=== PATIENT | male | born 1990 | race Caucasian/White ===

== ENCOUNTER 2016-11-23 16:30 | Emergency (ER) | payer OTHER ==
[~2016-11-23] VITALS: Wt 86.2 kg
[~2016-11-23 16:30] MED LIST: AMOXICILLIN500 MG PO; AMOXIL500 MG PO; ANAPROX DS550 MG PO; AUGMENTIN 875875 MG PO; BACTRIM DS 8001 TA1 PO; BENADRYL ALLERG25 M5 PO; CATAFLAM50 MG PO; CEPHALEXIN500 M1 PO; CLARITIN10 MG PO; DAYPRO600 M1 PO; HYDROCODONE BIT1 T11 PO; KEFLEX500 M1 PO; KEFLEX500 MG PO; LIDEX 0.05% CRE15 GM T; MOTRIN 800 MG E4 TAB PO; MOTRIN800 MG PO; Motrin,Rufen800 MG PO; NAPROSYN500 MG PO; PEN-VK500 MG PO; PREDNICOT20 MG PO; PREDNISONE10 MG PO; PROVENTIL0.09 MG/AC IH; ROBITUSSIN AC 110 ML PO; ROBITUSSIN DM 105 ML PO; TESSALON PERLE100 M1 PO; VIBRAMYCIN100 MG PO; ZITHROMAX Z PA250 MG PO; ZITHROMAX250 MG PO; ZOFRAN ODT4 MG SL; ZOVIRAX400 MG PO
[2016-11-23] MEDS ORDERED: PERCOCET 325 MG1 TA7 PO (18:28)
[2016-11-23] MEDS ORDERED: AMOXICILLIN500 M2 PO (18:28)
== END 2016-11-23 18:36 | disposition home or self-care (01) ==
LOC: ED 16:30
DX: S42.254A Nondisplaced fracture of greater tuberosity of right humerus, initial encounter for closed fracture (principal); J32.9 Chronic sinusitis, unspecified; F17.200 Nicotine dependence, unspecified, uncomplicated; W11.XXXA Fall on and from ladder, initial encounter; Y93.89 Activity, other specified; Y92.89 Other specified places as the place of occurrence of the external cause; Y99.9 Unspecified external cause status

== ENCOUNTER 2017-02-23 17:57 | Emergency (ER) | payer OTHER ==
[~2017-02-23] VITALS: Ht 182.8 cm; Wt 88.5 kg
[~2017-02-23 17:57] MED LIST changes: +AMOXICILLIN500 M2 PO; +PERCOCET 325 MG1 TA7 PO
[2017-02-23 18:46] LABS: BASO % 0.6 % (0.0-1.0); EOS # 0.2 10*3/uL (0.0-0.4); EOS % 2.2 % (1.0-4.0); HEMATOCRIT 38.2 % (42.0-52.0); HEMOGLOBIN 13.1 g/dl (14.0-18.0); LYMPH # 2.5 10*3/uL (1.3-4.4); LYMPH % 35.8 % (27.0-41.0); MEAN CELL VOLUME 90.1 fl (80.0-94.0); MEAN CORPUSCULAR HGB 30.9 pg (27.0-31.0); MEAN CORPUSCULAR HGB CONC 34.3 g/dl (33.0-37.0); MEAN PLATELET VOLUME 10.1 fl (9.6-12.3); MONO # 0.6 10*3/uL (0.1-1.0); MONO % 8.6 % (3.0-9.0); NEUT # 3.7 10*3/uL (2.3-7.9); NEUT % 52.7 % (47.0-73.0); PLATELET COUNT AUTOMATED 184 10*3/uL (130-400); RED BLOOD COUNT 4.24 10*6/uL (4.50-5.90); RED CELL DISTRI WIDTH 12.5 % (0-14.5)
[2017-02-23] MEDS ORDERED: CLINDAMYCIN HC300 MG PO (19:55)
== END 2017-02-23 19:58 | disposition home or self-care (01) ==
LOC: ED 17:57
PROVIDERS: Physician Assistant
DX: L08.9 Local infection of the skin and subcutaneous tissue, unspecified (principal); F17.200 Nicotine dependence, unspecified, uncomplicated

== ENCOUNTER 2017-03-07 15:50 | Emergency (ER) | payer OTHER ==
[~2017-03-07] VITALS: Wt 88.5 kg
[~2017-03-07 15:50] MED LIST changes: +CLINDAMYCIN HC300 MG PO
[2017-03-07] MEDS ORDERED: DAILY VALUE1 EACH PO (16:03)
[2017-03-07 16:26] LABS: BASO % 0.5 % (0.0-1.0); EOS # 0.2 10*3/uL (0.0-0.4); EOS % 2.6 % (1.0-4.0); HEMATOCRIT 37.5 % (42.0-52.0); LYMPH # 2.4 10*3/uL (1.3-4.4); MEAN CELL VOLUME 91.2 fl (80.0-94.0); MEAN CORPUSCULAR HGB 31.6 pg (27.0-31.0); MEAN CORPUSCULAR HGB CONC 34.7 g/dl (33.0-37.0); MEAN PLATELET VOLUME 10.3 fl (9.6-12.3); MONO # 0.5 10*3/uL (0.1-1.0); MONO % 7.2 % (3.0-9.0); NEUT # 3.4 10*3/uL (2.3-7.9); NEUT % 52.4 % (47.0-73.0); PLATELET COUNT AUTOMATED 185 10*3/uL (130-400); RED BLOOD COUNT 4.11 10*6/uL (4.50-5.90); RED CELL DISTRI WIDTH 12.4 % (0-14.5); WHITE BLOOD COUNT 6.5 10*3/uL (4.8-10.8)
[2017-03-07 16:41] LABS: ALBUMIN 4.1 gm/dl (3.1-4.5); ALKALINE PHOSPHATASE 69 U/L (45-117); BILIRUBIN, TOTAL 0.2 mg/dl (0.2-1.0); BUN 14 mg/dl (7-24); CARBON DIOXIDE 26 mmol/L (21-32); CHLORIDE 107 mmol/L (98-107); EST GLOM FILT AFRICAN AMERICAN > 60 ml/min; GLUCOSE 76 mg/dL (65-99); POTASSIUM 3.9 mmol/L (3.5-5.1); SGOT/AST 15 IU/L (3-35); SGPT/ALT 18 U/L (12-78); SODIUM 144 mmol/L (136-145)
[2017-03-07] MEDS ORDERED: AMOXICILLIN500 M2 PO (17:09)
== END 2017-03-07 17:42 | disposition home or self-care (01) ==
LOC: ED 15:50
PROVIDERS: Registered Nurse
DX: J06.9 Acute upper respiratory infection, unspecified (principal); F17.210 Nicotine dependence, cigarettes, uncomplicated; Z79.899 Other long term (current) drug therapy

== ENCOUNTER 2017-05-01 17:08 | Emergency (ER) | payer OTHER ==
[~2017-05-01] VITALS: Wt 81.6 kg
[~2017-05-01 17:08] MED LIST changes: +DAILY VALUE1 EACH PO
[2017-05-01] MEDS ORDERED: CEPHALEXIN500 M1 PO (18:09)
== END 2017-05-01 18:07 | disposition home or self-care (01) ==
LOC: ED 17:08
DX: S90.31XA Contusion of right foot, initial encounter (principal); L03.011 Cellulitis of right finger; F17.200 Nicotine dependence, unspecified, uncomplicated; Z79.899 Other long term (current) drug therapy; W55.12XA Struck by horse, initial encounter; Y93.9 Activity, unspecified; Y92.9 Unspecified place or not applicable; Y99.9 Unspecified external cause status

== ENCOUNTER 2017-07-01 12:36 | Emergency (ER) | payer OTHER ==
[~2017-07-01] VITALS: Ht 187.9 cm; Wt 88.5 kg
[2017-07-01] MEDS ORDERED: BACTRIM DS 8001 TA1 PO (13:49)
== END 2017-07-01 14:25 | disposition home or self-care (01) ==
LOC: ED 12:36
DX: L02.411 Cutaneous abscess of right axilla (principal); F17.200 Nicotine dependence, unspecified, uncomplicated

== ENCOUNTER 2017-08-05 16:54 | Emergency (ER) | payer OTHER ==
[~2017-08-05] VITALS: Ht 187.9 cm; Wt 88.5 kg
[2017-08-05 17:31] LABS: BILIRUBIN NEGATIVE (NEGATIVE); BLOOD NEGATIVE (NEGATIVE); CLARITY SL CLOUDY (CLEAR); COLOR YELLOW (YELLOW); GLUCOSE NEGATIVE (NEGATIVE); KETONE NEGATIVE (NEGATIVE); LEUKO ESTERASE NEGATIVE (NEGATIVE); NITRITE NEGATIVE (NEGATIVE)
[2017-08-05] MEDS ORDERED: MEDROL DOSEPAK4 MG PO (17:55)
[2017-08-05] MEDS ORDERED: CYCLOBENZAPRINE10 MG PO (17:55)
[2017-08-05] MEDS ORDERED: NAPROSYN500 MG PO (17:55)
[2017-08-05 17:59] LABS: BACTERIA TRACE; WBC 0-2 wbc/hpf (0-5)
== END 2017-08-05 18:05 | disposition home or self-care (01) ==
LOC: ED 16:54
PROVIDERS: Nurse Practitioner Family
DX: S39.011A Strain of muscle, fascia and tendon of abdomen, initial encounter (principal); F17.200 Nicotine dependence, unspecified, uncomplicated; Z79.899 Other long term (current) drug therapy; X58.XXXA Exposure to other specified factors, initial encounter; Y93.89 Activity, other specified; Y92.89 Other specified places as the place of occurrence of the external cause; Y99.9 Unspecified external cause status

== ENCOUNTER 2018-04-30 16:36 | Emergency (ER) | payer OTHER ==
[~2018-04-30] VITALS: Wt 88.5 kg
[~2018-04-30 16:36] MED LIST changes: +CYCLOBENZAPRINE10 MG PO; +MEDROL DOSEPAK4 MG PO
[2018-04-30] MEDS ORDERED: SEPTDS PO (16:47)
[2018-04-30] MEDS ORDERED: CEPHALEXIN500 M1 PO (16:47)
== END 2018-04-30 16:58 | disposition home or self-care (01) ==
LOC: ED 16:36
DX: L02.01 Cutaneous abscess of face (principal); F17.200 Nicotine dependence, unspecified, uncomplicated; Z79.899 Other long term (current) drug therapy; Z88.4 Allergy status to anesthetic agent; Z86.14 Personal history of Methicillin resistant Staphylococcus aureus infection

== ENCOUNTER 2018-05-05 19:33 | Emergency (ER) | payer OTHER ==
[~2018-05-05] VITALS: Ht 187.9 cm; Wt 88.5 kg
[~2018-05-05 19:33] MED LIST changes: +SEPTDS PO
[2018-05-05] MEDS ORDERED: CEPHALEXIN500 M1 PO (19:50)
[2018-05-05] MEDS ORDERED: SEPTDS PO (19:50)
== END 2018-05-05 19:56 | disposition home or self-care (01) ==
LOC: ED 19:33
DX: L02.01 Cutaneous abscess of face (principal); Z79.899 Other long term (current) drug therapy

== ENCOUNTER 2018-08-27 17:22 | Emergency (ER) | payer OTHER ==
[~2018-08-27] VITALS: Ht 187.9 cm; Wt 88.5 kg
== END 2018-08-27 19:24 | disposition home or self-care (01) ==
LOC: ED 17:22
DX: S86.912A Strain of unspecified muscle(s) and tendon(s) at lower leg level, left leg, initial encounter (principal); Z91.041 Radiographic dye allergy status; Z79.2 Long term (current) use of antibiotics; Z79.899 Other long term (current) drug therapy; X50.1XXA Overexertion from prolonged static or awkward postures, initial encounter; Y93.89 Activity, other specified; Y92.89 Other specified places as the place of occurrence of the external cause; Y99.8 Other external cause status

== ENCOUNTER 2018-10-08 19:37 | Emergency (ER) | payer OTHER ==
[~2018-10-08] VITALS: Wt 86.2 kg
[2018-10-08] MEDS ORDERED: ZOFRAN4 MG PO (19:45)
[2018-10-08] MEDS ORDERED: SEPTDS PO (19:45)
[2018-10-08] MEDS ORDERED: KEFLEX500 M1 PO (19:45)
[2018-10-08] MEDS ORDERED: NAPROSYN500 MG PO (20:05)
== END 2018-10-08 20:10 | disposition home or self-care (01) ==
LOC: ED 19:37
DX: L02.411 Cutaneous abscess of right axilla (principal); R03.0 Elevated blood-pressure reading, without diagnosis of hypertension; Z91.041 Radiographic dye allergy status

== ENCOUNTER 2018-10-13 20:05 | Emergency (ER) | payer OTHER ==
[~2018-10-13] VITALS: Ht 187.9 cm; Wt 88.5 kg
[~2018-10-13 20:05] MED LIST changes: +ZOFRAN4 MG PO
[2018-10-13] MEDS ORDERED: CEPHALEXIN500 M1 PO (20:27)
== END 2018-10-13 20:30 | disposition home or self-care (01) ==
LOC: ED 20:05
DX: T26.02XA Burn of left eyelid and periocular area, initial encounter (principal); X08.8XXA Exposure to other specified smoke, fire and flames, initial encounter; Y93.89 Activity, other specified; Y92.89 Other specified places as the place of occurrence of the external cause; Y99.8 Other external cause status

== ENCOUNTER 2018-12-09 23:58 | Emergency (ER) | payer SELFPAY ==
[~2018-12-09] VITALS: Ht 187.9 cm; Wt 88.5 kg
[2019-02-05] MEDS ORDERED: PREDNISONE10 MG PO (10:02)
[2019-02-05] MEDS ORDERED: CLARITIN10 MG PO (10:02)
[2019-02-05] MEDS ORDERED: MUCINEX DM ER1 EACH PO (10:02)
[2019-02-05] MEDS ORDERED: FLONASE ALLERG9.9 ML NAS (10:02)
== END 2018-12-10 01:24 | disposition home or self-care (01) ==
LOC: ED 23:58
DX: T15.01XA Foreign body in cornea, right eye, initial encounter (principal); Z91.041 Radiographic dye allergy status; X58.XXXA Exposure to other specified factors, initial encounter; Y93.89 Activity, other specified; Y92.89 Other specified places as the place of occurrence of the external cause; Y99.8 Other external cause status

== ENCOUNTER 2018-12-29 22:25 | Emergency (ER) | payer SELFPAY ==
[2019-02-05] MEDS ORDERED: MUCINEX DM ER1 EACH PO (10:02)
[2019-02-05] MEDS ORDERED: PREDNISONE10 MG PO (10:02)
[2019-02-05] MEDS ORDERED: CLARITIN10 MG PO (10:02)
[2019-02-05] MEDS ORDERED: FLONASE ALLERG9.9 ML NAS (10:02)
== END 2018-12-30 00:31 | disposition home or self-care (01) ==
LOC: ED 22:25
DX: T15.91XA Foreign body on external eye, part unspecified, right eye, initial encounter (principal); Z91.041 Radiographic dye allergy status; X58.XXXA Exposure to other specified factors, initial encounter; Y93.89 Activity, other specified; Y92.89 Other specified places as the place of occurrence of the external cause; Y99.8 Other external cause status

== ENCOUNTER 2018-12-30 15:25 | Emergency (ER) | payer SELFPAY ==
[~2018-12-30] VITALS: Ht 182.8 cm; Wt 88.5 kg
[2019-02-05] MEDS ORDERED: FLONASE ALLERG9.9 ML NAS (10:02)
[2019-02-05] MEDS ORDERED: PREDNISONE10 MG PO (10:02)
[2019-02-05] MEDS ORDERED: CLARITIN10 MG PO (10:02)
[2019-02-05] MEDS ORDERED: MUCINEX DM ER1 EACH PO (10:02)
== END 2018-12-30 16:02 | disposition home or self-care (01) ==
LOC: ED 15:25
DX: S05.01XA Injury of conjunctiva and corneal abrasion without foreign body, right eye, initial encounter (principal); F17.200 Nicotine dependence, unspecified, uncomplicated; Z91.041 Radiographic dye allergy status; X58.XXXA Exposure to other specified factors, initial encounter; Y93.89 Activity, other specified; Y92.098 Other place in other non-institutional residence as the place of occurrence of the external cause; Y99.8 Other external cause status

== ENCOUNTER 2019-02-21 19:16 | Emergency (ER) | payer SELFPAY ==
[~2019-02-21] VITALS: Ht 187.9 cm; Wt 93.0 kg
[~2019-02-21 19:16] MED LIST changes: +FLONASE ALLERG9.9 ML NAS; +MUCINEX DM ER1 EACH PO
[2019-02-21] MEDS ORDERED: IBUPROFEN600 MG PO (20:18)
[2019-02-21] MEDS ORDERED: AUGMENTIN 875875 MG PO (20:18)
== END 2019-02-21 20:28 | disposition home or self-care (01) ==
LOC: ED 19:16
DX: J02.9 Acute pharyngitis, unspecified (principal); H66.91 Otitis media, unspecified, right ear; Z91.041 Radiographic dye allergy status; Z79.899 Other long term (current) drug therapy

== ENCOUNTER 2019-07-31 08:30 | Emergency (ER) | payer SELFPAY ==
[~2019-07-31] VITALS: Ht 187.9 cm; Wt 97.5 kg
[~2019-07-31 08:30] MED LIST changes: +IBUPROFEN600 MG PO
[2019-07-31] MEDS ORDERED: Tobrex Ophth S2.5 ML OPH (09:43)
== END 2019-07-31 09:50 | disposition home or self-care (01) ==
LOC: ED 08:30
DX: S05.01XA Injury of conjunctiva and corneal abrasion without foreign body, right eye, initial encounter (principal); F17.200 Nicotine dependence, unspecified, uncomplicated; X58.XXXA Exposure to other specified factors, initial encounter; Y93.89 Activity, other specified; Y92.89 Other specified places as the place of occurrence of the external cause; Y99.8 Other external cause status

== ENCOUNTER 2020-03-10 12:28 | Emergency (ER) | payer SELFPAY ==
[~2020-03-10] VITALS: Ht 187.9 cm; Wt 97.5 kg
[~2020-03-10 12:28] MED LIST changes: +Tobrex Ophth S2.5 ML OPH
[2020-03-10] MEDS ORDERED: CEPHALEXIN500 M1 PO (15:18)
[2020-03-10] MEDS ORDERED: BACITRACIN ZIN0.9 GM T (15:18)
[2020-03-10] MEDS ORDERED: SEPTDS PO (15:18)
== END 2020-03-10 15:19 | disposition home or self-care (01) ==
LOC: ED 12:28
DX: L08.9 Local infection of the skin and subcutaneous tissue, unspecified (principal); F17.200 Nicotine dependence, unspecified, uncomplicated; Z91.041 Radiographic dye allergy status; Z79.899 Other long term (current) drug therapy; Z79.2 Long term (current) use of antibiotics; Z96.22 Myringotomy tube(s) status

== ENCOUNTER 2020-03-13 00:09 | Emergency (ER) | payer SELFPAY ==
[~2020-03-13] VITALS: Ht 187.9 cm; Wt 99.8 kg
[~2020-03-13 00:09] MED LIST changes: +BACITRACIN ZIN0.9 GM T
== END 2020-03-13 01:33 | disposition home or self-care (01) ==
LOC: ED 00:09
DX: M65.141 Other infective (teno)synovitis, right hand (principal); F17.200 Nicotine dependence, unspecified, uncomplicated; Z53.29 Procedure and treatment not carried out because of patient's decision for other reasons; Z91.041 Radiographic dye allergy status; Z79.899 Other long term (current) drug therapy; Z79.2 Long term (current) use of antibiotics

== ENCOUNTER 2021-01-08 09:32 | Emergency (ER) | payer BC ==
[~2021-01-08] VITALS: Ht 187.9 cm; Wt 117.0 kg
== END 2021-01-08 10:25 | disposition home or self-care (01) ==
LOC: ED 09:32
DX: J34.89 Other specified disorders of nose and nasal sinuses (principal); F17.200 Nicotine dependence, unspecified, uncomplicated; Z88.8 Allergy status to other drugs, medicaments and biological substances; Z79.899 Other long term (current) drug therapy

== ENCOUNTER 2021-01-19 19:42 | Emergency (ER) | payer OTHER, BC ==
[~2021-01-19] VITALS: Ht 187.9 cm; Wt 106.6 kg
[2021-01-19] MEDS ORDERED: ROBAXIN-750750 MG PO (20:34)
[2021-01-19] MEDS ORDERED: NAPROSYN500 MG PO (20:34)
== END 2021-01-19 21:10 | disposition home or self-care (01) ==
LOC: ED 19:42
DX: S39.012A Strain of muscle, fascia and tendon of lower back, initial encounter (principal); Z91.041 Radiographic dye allergy status; Z79.2 Long term (current) use of antibiotics; Z79.899 Other long term (current) drug therapy; Z96.22 Myringotomy tube(s) status; V49.88XA Car occupant (driver) (passenger) injured in other specified transport accidents, initial encounter; Y93.89 Activity, other specified; Y92.488 Other paved roadways as the place of occurrence of the external cause; Y99.8 Other external cause status

== ENCOUNTER 2021-04-28 17:50 | Emergency (ER) | payer BC ==
[~2021-04-28] VITALS: Ht 187.9 cm; Wt 113.4 kg
[~2021-04-28 17:50] MED LIST changes: +ROBAXIN-750750 MG PO
[2021-04-28] MEDS ORDERED: IBUPROFEN600 MG PO (19:53)
[2021-04-28] MEDS ORDERED: DOXYCYCLINE100 M3 PO (19:53)
[2021-04-28] MEDS ORDERED: Bactroban Oint22 GM T (20:27)
== END 2021-04-28 20:33 | disposition home or self-care (01) ==
LOC: ED 17:50
DX: L02.414 Cutaneous abscess of left upper limb (principal); Z91.041 Radiographic dye allergy status; Z79.899 Other long term (current) drug therapy

== ENCOUNTER 2022-12-05 17:18 | Emergency (ER) | payer BC ==
[~2022-12-05] VITALS: Wt 104.3 kg
[~2022-12-05 17:18] MED LIST changes: +Bactroban Oint22 GM T; +DOXYCYCLINE100 M3 PO
[2022-12-05] MEDS ORDERED: VIBRAMYCIN100 MG PO ×2 (17:46→17:55)
[2022-12-05] MEDS ORDERED: SEPTDS PO ×2 (17:46→17:55)
== END 2022-12-05 17:46 | disposition home or self-care (01) ==
LOC: ED 17:18
DX: T23.292A Burn of second degree of multiple sites of left wrist and hand, initial encounter (principal); Z91.041 Radiographic dye allergy status; F10.90 Alcohol use, unspecified, uncomplicated; Z98.890 Other specified postprocedural states; W86.8XXA Exposure to other electric current, initial encounter; Y93.89 Activity, other specified; Y92.89 Other specified places as the place of occurrence of the external cause; Y99.8 Other external cause status

== ENCOUNTER 2023-01-29 17:45 | Emergency (ER) | payer BC ==
[~2023-01-29] VITALS: Wt 99.8 kg
[2023-01-29] MEDS ORDERED: TRAMADOL HCL50 MG PO (18:20)
[2023-01-29] MEDS ORDERED: AMOX-CLAV 875-1 EACH PO (18:41)
== END 2023-01-29 18:57 | disposition home or self-care (01) ==
LOC: ED 17:45
DX: K04.7 Periapical abscess without sinus (principal); Z91.041 Radiographic dye allergy status; Z98.890 Other specified postprocedural states; F17.200 Nicotine dependence, unspecified, uncomplicated

== ENCOUNTER 2023-04-07 16:26 | Emergency (ER) | payer BC ==
[~2023-04-07] VITALS: Wt 106.6 kg
[~2023-04-07 16:26] MED LIST changes: +AMOX-CLAV 875-1 EACH PO; +TRAMADOL HCL50 MG PO
[2023-04-07 17:28] LABS: BASO % 0.2 % (0.0-1.0); EOS # 0.1 10*3/uL (0.0-0.4); EOS % 0.9 % (1.0-4.0); LYMPH # 1.9 10*3/uL (1.3-4.4); LYMPH % 20.2 % (27.0-41.0); MEAN CELL VOLUME 92.3 fl (80.0-94.0); MEAN CORPUSCULAR HGB 30.9 pg (27.0-31.0); MEAN CORPUSCULAR HGB CONC 33.4 g/dl (33.0-37.0); MEAN PLATELET VOLUME 10.3 fl (9.6-12.3); MONO # 0.9 10*3/uL (0.1-1.0); MONO % 9.7 % (3.0-9.0); NEUT # 6.5 10*3/uL (2.3-7.9); NEUT % 68.8 % (47.0-73.0); PLATELET COUNT AUTOMATED 201 10*3/uL (130-400); RED BLOOD COUNT 4.44 10*6/uL (4.50-5.90); WHITE BLOOD COUNT 9.5 10*3/uL (4.8-10.8)
[2023-04-07 17:54] LABS: ALKALINE PHOSPHATASE 74 U/L (46-116); BUN 8 mg/dl (9-23); CHLORIDE 103 mmol/L (98-107); POTASSIUM 3.8 mmol/L (3.4-5.1); SGPT/ALT 12 U/L (10-49); TOTAL PROTEIN 7.4 gm/dL (6.0-8.0)
[2023-04-07] MEDS ORDERED: PREDNISONE10 MG PO (19:15)
[2023-04-07] MEDS ORDERED: AMOX-CLAV 875-1 EACH PO (19:15)
== END 2023-04-07 19:21 | disposition home or self-care (01) ==
LOC: ED 16:26
PROVIDERS: Student in an Organized Health Care Education/Training Program
DX: K11.20 Sialoadenitis, unspecified (principal); Z91.041 Radiographic dye allergy status; Z98.890 Other specified postprocedural states

== ENCOUNTER 2023-04-21 17:51 | Emergency (ER) | payer BC ==
[~2023-04-21] VITALS: Wt 115.7 kg
== END 2023-04-21 20:45 | disposition left against medical advice (07) ==
LOC: ED 17:51
DX: K13.79 Other lesions of oral mucosa (principal); Z53.21 Procedure and treatment not carried out due to patient leaving prior to being seen by health care provider

== ENCOUNTER → 2023-05-13 | Outpatient (CLI) | payer BC | END | disposition home or self-care (01) | LOC: RAD 00:39 | PROVIDERS: ATTEND Physician Assistant | DX: R13.14 Dysphagia, pharyngoesophageal phase (principal) ==

== ENCOUNTER 2023-06-09 16:31 | Emergency (ER) | payer BC ==
[~2023-06-09] VITALS: Wt 91.2 kg
== END 2023-06-09 20:05 | disposition left against medical advice (07) ==
LOC: ED 16:31
DX: H57.89 Other specified disorders of eye and adnexa (principal); Z53.21 Procedure and treatment not carried out due to patient leaving prior to being seen by health care provider

== ENCOUNTER 2024-07-03 16:10 | Emergency (ER) | payer BC ==
[~2024-07-03] VITALS: Ht 187.9 cm; Wt 102.1 kg
[2024-07-03] MEDS ORDERED: FLUORESCEIN SODIUM 1 MG STRIP OPH ONE (16:40)
[2024-07-03] MEDS ORDERED: SEPTDS PO (17:21)
[2024-07-03] MEDS ORDERED: Tdap Vaccine 0.5 ML SYR (Adult Vaccine) IM ONE (17:25)
== END 2024-07-03 17:25 | disposition home or self-care (01) ==
LOC: ED 16:10
DX: L02.413 Cutaneous abscess of right upper limb (principal); H57.89 Other specified disorders of eye and adnexa; F17.200 Nicotine dependence, unspecified, uncomplicated; Z91.041 Radiographic dye allergy status; Z98.890 Other specified postprocedural states

== ENCOUNTER 2024-07-18 16:56 | Emergency (ER) | payer BC ==
[~2024-07-18] VITALS: Ht 187.9 cm; Wt 103.4 kg
[2024-07-18] MEDS ORDERED: ATHLETIC FOOT C30 GM T (17:29)
[2024-07-18] MEDS ORDERED: CLOTRIMAZOLE 15 GM TUBE T ONE (17:30)
== END 2024-07-18 17:47 | disposition home or self-care (01) ==
LOC: ED 16:56
DX: B35.4 Tinea corporis (principal); F17.200 Nicotine dependence, unspecified, uncomplicated; Z91.041 Radiographic dye allergy status; Z98.890 Other specified postprocedural states

== ENCOUNTER 2024-12-18 18:31 | Emergency (ER) | payer BC ==
[~2024-12-18] VITALS: Ht 187.9 cm; Wt 110.8 kg
[~2024-12-18 18:31] MED LIST changes: +ATHLETIC FOOT C30 GM T
[2024-12-18] MEDS ORDERED: methylPREDNISolone sod succ 125 MG VIAL IM ONE (20:15)
[2024-12-18] MEDS ORDERED: PREDNISONE20 M1 PO (20:20)
[2024-12-18] MEDS ORDERED: ZITHROMAX250 MG PO (20:20)
== END 2024-12-18 20:38 | disposition home or self-care (01) ==
LOC: ED 18:31
DX: B34.9 Viral infection, unspecified (principal); Z91.041 Radiographic dye allergy status; Z96.22 Myringotomy tube(s) status

== ENCOUNTER 2025-01-20 12:55 | Emergency (ER) | payer BC ==
[~2025-01-20] VITALS: Wt 108.9 kg
[~2025-01-20 12:55] MED LIST changes: +PREDNISONE20 M1 PO
[2025-01-20] MEDS ORDERED: SEPTDS PO (13:18)
[2025-01-20] MEDS ORDERED: TRIAMCINOLONE430 GM TD (13:18)
[2025-01-20] MEDS ORDERED: Sulfamethoxazole/Trimethopri 1 TAB TAB PO ONE (13:20)
[2025-01-20] MEDS ORDERED: TRIDERM28.4 GM TD (16:07)
== END 2025-01-20 13:30 | disposition home or self-care (01) ==
LOC: ED 12:55
DX: L03.113 Cellulitis of right upper limb (principal); F17.200 Nicotine dependence, unspecified, uncomplicated; Z91.041 Radiographic dye allergy status; Z98.890 Other specified postprocedural states

== ENCOUNTER 2025-02-17 13:04 | Emergency (ER) | payer BC ==
[~2025-02-17] VITALS: Ht 187.9 cm; Wt 117.9 kg
[~2025-02-17 13:04] MED LIST changes: +TRIAMCINOLONE430 GM TD; +TRIDERM28.4 GM TD
[2025-02-17] MEDS ORDERED: CEPHALEXIN 500 MG CAP PO ONE (13:40)
[2025-02-17] MEDS ORDERED: TRIAMCINOLONE ACETONIDE 15 GM TUBE T ONE (13:40)
[2025-02-17] MEDS ORDERED: CEPHALEXIN500 M1 PO (13:41)
== END 2025-02-17 14:05 | disposition home or self-care (01) ==
LOC: ED 13:04
DX: R21 Rash and other nonspecific skin eruption (principal); Z91.041 Radiographic dye allergy status; Z96.22 Myringotomy tube(s) status

== ENCOUNTER 2025-03-28 19:35 | Emergency (ER) | payer BC ==
[~2025-03-28] VITALS: Ht 187.9 cm; Wt 117.0 kg
[2025-03-28] MEDS ORDERED: Sulfamethoxazole/Trimethopri 1 TAB TAB PO ONE (20:20)
[2025-03-28] MEDS ORDERED: methylPREDNISolone sod succ 125 MG VIAL IM ONE (20:20)
[2025-03-28] MEDS ORDERED: FLUCONAZOLE 150 MG TAB PO ONE (20:20)
[2025-03-28] MEDS ORDERED: SEPTDS PO (20:31)
== END 2025-03-28 21:30 | disposition home or self-care (01) ==
LOC: ED 19:35
DX: L40.9 Psoriasis, unspecified (principal); L02.416 Cutaneous abscess of left lower limb; Z79.899 Other long term (current) drug therapy; Z91.041 Radiographic dye allergy status; Z98.890 Other specified postprocedural states

== ENCOUNTER 2025-09-23 18:58 | Emergency (ER) | payer BC ==
[~2025-09-23] VITALS: Ht 187.9 cm; Wt 120.2 kg
[2025-09-23] MEDS ORDERED: Dexamethasone Sodium Phospha 20 MG/5 ML VIAL IM ONE (19:30)
[2025-09-23] MEDS ORDERED: Cyclobenzaprine Hydrochlorid 10 MG TAB PO ONE (19:30)
[2025-09-23] MEDS ORDERED: MELOXICAM15 MG PO (20:48)
[2025-09-23] MEDS ORDERED: CYCLOBENZAPRINE5 M3 PO (20:48)
[2025-09-23] MEDS ORDERED: MEDROL DOSEPAK4 MG PO (20:48)
== END 2025-09-23 20:49 | disposition home or self-care (01) ==
LOC: ED 18:58
DX: M62.838 Other muscle spasm (principal); F17.210 Nicotine dependence, cigarettes, uncomplicated; Z91.041 Radiographic dye allergy status

== ENCOUNTER 2025-10-13 20:28 | Emergency (ER) | payer BC ==
[~2025-10-13] VITALS: Ht 187.9 cm; Wt 129.7 kg
[~2025-10-13 20:28] MED LIST changes: +CYCLOBENZAPRINE5 M3 PO; +MELOXICAM15 MG PO
[2025-10-13] MEDS ORDERED: CEPHALEXIN 500 MG CAP PO ONE (22:25)
[2025-10-13] MEDS ORDERED: IBUPROFEN 800 MG TAB PO ONE (22:25)
[2025-10-13] MEDS ORDERED: SILVER SULFADIAZINE 25 GM TUBE T ONE (22:25)
[2025-10-13] MEDS ORDERED: CEPHALEXIN500 M1 PO (23:01)
== END 2025-10-13 23:11 | disposition home or self-care (01) ==
LOC: ED 20:28
DX: T24.202A Burn of second degree of unspecified site of left lower limb, except ankle and foot, initial encounter (principal); F17.210 Nicotine dependence, cigarettes, uncomplicated; Z88.8 Allergy status to other drugs, medicaments and biological substances; X04.XXXA Exposure to ignition of highly flammable material, initial encounter; Y93.89 Activity, other specified; Y92.89 Other specified places as the place of occurrence of the external cause; Y99.8 Other external cause status